=== PATIENT | male | born 1945 | race Caucasian/White ===

== ENCOUNTER 2016-11-23 11:11 | Day surgery (SDC) | payer MEDICARE ==
[2016-11-22 12:25] LABS: BASOPHILS 0.3 %; BASOPHILS ABSOLUTE 0.02 10/3/uL (0.0-0.16); EOSINOPHILS 4.1 %; EOSINOPHILS ABSOLUTE 0.26 10/3/uL (0.0-0.53); HEMATOCRIT 40.9 % (40.0-51.0); HEMOGLOBIN 13.6 g/dL (13.6-17.8); IMMATURE GRANULOCYTES 0.3 %; IMMATURE GRANULOCYTES ABSOLUTE 0.02 10/3/uL (0.0-0.11); LYMPHOCYTES 26.1 %; LYMPHOCYTES ABSOLUTE 1.64 10/3/uL (0.67-4.30); MEAN CORPUS HGB CONC 33.3 g/dL (32.0-36.0); MEAN CORPUSCULAR HEMOGLOB 31.9 pg (26.0-34.0); MEAN CORPUSCULAR VOLUME 95.8 fL (80-100); MEAN PLATELET VOLUME 10.5 fL (9.2-13.0); MONOCYTES 6.4 %; NEUTROPHILS 62.8 %; NEUTROPHILS ABSOLUTE 3.94 10/3/uL (2.02-8.40); PLATELET COUNT 203 10/3/uL (150-400); RBC DISTRIBUTION WIDTH 13.6 % (12.0-16.0); RED CELL COUNT 4.27 10/6/uL (4.7-6.1); WHITE BLOOD CELLS 6.3 10/3/uL (4.5-10.5)
[2016-11-22 12:26] LABS: MANUAL DIFF NO %
[2016-11-22 12:49] LABS: A/G RATIO 1.1 (0.7-1.9); ALBUMIN 3.9 G/DL (3.5-5.0); ALKALINE PHOSPHATASE 50 U/L (45-117); BUN (BLOOD UREA NITROGEN) 21 MG/DL (6-23); CALCIUM, SERUM 9.2 MG/DL (8.5-10.4); CHLORIDE, SERUM 107 MMOL/L (96-112); CO2 (CARBON DIOXIDE) 29 MMOL/L (24-34); CREATININE 1.23 MG/DL (0.70-1.30); GFR AFRICAN AMERICAN 68 ML/MIN (>=60); GFR NON AFRICAN AMERICAN 58 ML/MIN (>=60); GLOBULIN 3.4 G/DL (2.5-4.1); GLUCOSE, SERUM 138 MG/DL (60-99); POTASSIUM, SERUM 4.6 MMOL/L (3.5-5.3); SGOT(AST) 19 U/L (5-40); SGPT(ALT) 25 U/L (5-65); SODIUM, SERUM 141 MMOL/L (135-148); TOTAL BILIRUBIN 0.3 MG/DL (0-1.2); TOTAL PROTEIN 7.3 G/DL (6.0-8.5)
[~2016-11-23] VITALS: Ht 182.9 cm; Wt 83.2 kg
--- NOTE | ~2016-11-23 | OP ---
Record Of Operation [facility] [place] [address] [place]. [address] NAME: OVIDIO MCKENZIE : 43 STATUS : [facility]#: [id number] AGE: 71 ADM/REG DATE : 11/23/16 MR#: [id number] REPORT SERV DATE: 11/23/16 DICTATED BY: MILTON MOORE III DATE: 11/23/16 REPORT STATUS : Draft TRANSCRIBED BY: KAMERON DATE: 11/23/16 DATE OF PROCEDURE: 11/23/2016 PREOPERATIVE DIAGNOSIS: Symptomatic recurrent right inguinal hernia. POSTOPERATIVE DIAGNOSES: Symptomatic recurrent right inguinal hernia, direct right inguinal hernia. PROCEDURE: Open Gene tension-free repair of recurrent right inguinal hernia with Prolene mesh. ANESTHESIA: General with intubation. COMPLICATIONS: None. ESTIMATED BLOOD LOSS: Less than 5 mL. SPECIMENS: None. DRAINS: None. LAP AND SPONGE COUNT: Correct x3. BRIEF HISTORY: This 71-year-old male presented with a symptomatic recurrent right inguinal hernia. It was felt that open repair of this was indicated. This procedure, the risks, benefits, and alternatives, including but not limited to the risk for bleeding, infection, pain, swelling, scarring, deformity to the area, seroma formation, hematoma formation, nerve injury, chronic paresthesia, pain in the thigh, scrotum, or groin, chronic neuralgia or neuroma, testicular vessel injury resulting in orchitis and possible need for orchiectomy, and unforeseen complications including deep venous thrombosis, pulmonary embolus, myocardial infarction, stroke, pneumonia, and , were explained the patient prior to surgery. The expected length of recovery was explained. The patient's questions were answered. He understood the risks and agreed to surgery as planned. DESCRIPTION OF PROCEDURE: After being properly identified and after discussing the risks of surgery with the patient in the preoperative area and after identifying the hernia with him in the preoperative area, the patient was taken to the operating room and placed in the supine position on the operating room table. General anesthesia was administered and he was intubated without difficulty. The abdomen and groins were prepped and draped sterilely in usual fashion. After an appropriate "time-out" per JCAHO standards, a small oblique incision was made in the right groin from the pubic tubercle medially to the anterior- superior iliac spine laterally. The incision was continued through the subcutaneous tissue. Hemostasis was controlled with cautery. The incision was continued down to the external oblique fascia. There was extensive scarring in the area. The external oblique fascia was opened along the direction of fibers so as to open the external inguinal ring. There was marked distortion and scarring of the tissues in the area from the previous surgery. Using Record Of Operation [facility] [id number] [place]. [address] NAME: OVIDIO MCKENZIE : 43 STATUS : [facility]#: [id number] AGE: 71 ADM/REG DATE : 11/23/16 MR#: [id number] REPORT SERV DATE: 11/23/16 DICTATED BY: MILTON MOORE III DATE: 11/23/16 REPORT STATUS : Draft TRANSCRIBED BY: KAMERON DATE: 11/23/16 sharp dissection, the spermatic cord and its contents were mobilized from the floor of the canal. A Dania drain was placed beneath it. There was noted to be a direct hernia protruding through the floor of the canal. The spermatic cord was skeletonized. It was noted there was no indirect component to the hernia. The floor of canal was reapproximated with interrupted 2-0 silk sutures, which were placed between the shelving edge of the inguinal ligament laterally and the internal oblique and transversalis fascia medially. This resulted in good closure of the defect with minimal tension. A Prolene mesh was then selected and cut to the appropriate size for the floor of the canal. A slit was made in the mesh laterally to incorporate the spermatic cord. The mesh was then secured to the floor of the canal with a running 2-0 Prolene suture, which was placed between the edge of the mesh and shelving edge of the inguinal ligament laterally and the edge of the mesh and internal oblique and transversalis fascia medially. The mesh was secured lateral to the cord as well. Upon completion of this, the mesh lay nicely on the floor of canal. It was not twisted or kinked in any way. It was not under any tension. Hemostasis was assured. The external oblique fascia was closed with a running 2-0 silk suture. Subcutaneous tissue was closed with running 3-0 chromic suture. The skin was closed with running subcuticular 4-0 Monocryl stitch. The incision injected with 0.5% Marcaine. Dressings were applied. Anesthesia was reversed. The patient was taken to recovery room in stable condition. He tolerated the procedure well. His family was informed the results of surgery. The patient will be discharged when stable and comfortable and able to void and ambulate. His family was advised that they should keep his wound clean and dry for [address] should not drive for three to four days after surgery or while using narcotics and that he should resume his usual medications. He was asked to return in two weeks for followup or sooner if any fever, chills, wound drainage, or other problems prior to that time. He was given a prescription for Percocet 7.5 one t.i.d., #12, as needed for pain, which he was advised not to use while driving. DARIUS/KAMERON Milton Moore III, M.D. / [id number] CC: Suzette Hidalgo III, M.D.
[~2016-11-23 11:11] MED LIST: CELEXA20 PO; HYZAAR1 TAB PO; LOFIB160 PO; LYRICA75 PO; NEUR300 PO; PCET PO; PR25 PO; PRAVAC PO; SEPTRA DS1 TAB PO; TRILEP300 PO; ULTRAM50 PO; V120 PO; VERELAN120 MG PO; VIMPAT50 MG PO
== END 2016-11-23 17:07 | disposition home or self-care (01) ==
LOC: SDC 11:11
PROVIDERS: Surgery
PROC: 0YU50JZ Supplement Right Inguinal Region with Synthetic Substitute, Open Approach (ICD-10-PCS; principal; 2016-11-23 15:45)
DX: K40.90 Unilateral inguinal hernia, without obstruction or gangrene, not specified as recurrent (principal); I10 Essential (primary) hypertension; E78.00 Pure hypercholesterolemia, unspecified; F41.9 Anxiety disorder, unspecified; F32.9 Major depressive disorder, single episode, unspecified; H91.90 Unspecified hearing loss, unspecified ear; K63.5 Polyp of colon; M19.90 Unspecified osteoarthritis, unspecified site; L30.9 Dermatitis, unspecified; Z82.49 Family history of ischemic heart disease and other diseases of the circulatory system; Z88.5 Allergy status to narcotic agent; Z90.89 Acquired absence of other organs; Z79.899 Other long term (current) drug therapy; Z98.890 Other specified postprocedural states
CPT/HCPCS: 71020; 80053; 85025; 93005; A9270-GY; C1781; J0690; J2270; J2405; J2710; J3010